=== PATIENT | female | born 1955 | race Caucasian/White ===

== ENCOUNTER 2016-11-27 05:19 | Inpatient (IN) | payer MEDICARE ==
[2016-11-14 11:13] LABS: BASOPHILS 0.6 %; BASOPHILS ABSOLUTE 0.06 10/3/uL (0.0-0.16); EOSINOPHILS ABSOLUTE 0.21 10/3/uL (0.0-0.53); HEMATOCRIT 42.1 % (36.0-48.0); HEMOGLOBIN 14.2 g/dL (12.0-16.0); IMMATURE GRANULOCYTES 0.3 %; IMMATURE GRANULOCYTES ABSOLUTE 0.03 10/3/uL (0.0-0.11); LYMPHOCYTES 34.3 %; LYMPHOCYTES ABSOLUTE 3.53 10/3/uL (0.67-4.30); MEAN CORPUS HGB CONC 33.7 g/dL (32.0-36.0); MEAN CORPUSCULAR HEMOGLOB 28.1 pg (26.0-34.0); MEAN CORPUSCULAR VOLUME 83.4 fL (80-100); MEAN PLATELET VOLUME 10.2 fL (9.2-13.0); MONOCYTES 5.7 %; MONOCYTES ABSOLUTE 0.59 10/3/uL (0.21-1.20); NEUTROPHILS 57.1 %; NEUTROPHILS ABSOLUTE 5.87 10/3/uL (2.02-8.40); PLATELET COUNT 291 10/3/uL (150-400); RBC DISTRIBUTION WIDTH 15.1 % (12.0-16.0); RED CELL COUNT 5.05 10/6/uL (4.0-5.6); WHITE BLOOD CELLS 10.3 10/3/uL (4.5-10.5)
[2016-11-14 11:16] LABS: MANUAL DIFF NO %
[2016-11-14 11:22] LABS: PARTIAL THROMBO TIME 25.8 SEC (22.5-37.2); PROTIME (NOT ORD) 13.5 SEC (12.0-14.5)
[2016-11-14 11:28] LABS: A/G RATIO 0.9 (0.7-1.9); ALBUMIN 3.6 G/DL (3.5-5.0); ALKALINE PHOSPHATASE 132 U/L (45-117); BUN (BLOOD UREA NITROGEN) 33 MG/DL (6-23); CALCIUM, SERUM 9.2 MG/DL (8.5-10.4); CHLORIDE, SERUM 98 MMOL/L (96-112); CO2 (CARBON DIOXIDE) 31 MMOL/L (24-34); CREATININE 1.46 MG/DL (0.55-1.02); GFR AFRICAN AMERICAN 44 ML/MIN (>=60); GFR NON AFRICAN AMERICAN 38 ML/MIN (>=60); GLOBULIN 4.1 G/DL (2.5-4.1); GLUCOSE, SERUM 246 MG/DL (60-99); POTASSIUM, SERUM 4.1 MMOL/L (3.5-5.3); SGOT(AST) 29 U/L (5-40); SGPT(ALT) 42 U/L (5-65); SODIUM, SERUM 134 MMOL/L (135-148); TOTAL BILIRUBIN 0.6 MG/DL (0-1.2); TOTAL PROTEIN 7.7 G/DL (6.0-8.5)
[2016-11-14 12:05] LABS: ASCORBIC ACID (UR NOT ORDER) NEG (NEG); BILIRUBIN, URINE NEGATIVE (NEG); KETONE, URINE NEGATIVE (NEG); LEUKOCYTE ESTERASE(NOT OR NEG (NEG); WBC (NOT ORDERED) (RFLEX) < 1 (0-5)
--- NOTE | ~2016-11-27 | OP ---
Record Of Operation [facility] [address] [place]. [address] NAME: TALIA CHANDRA : 53 STATUS : ADM IN PAT#: [id number] AGE: 61 ADM/REG DATE : 11/27/16 MR#: [id number] REPORT SERV DATE: 11/27/16 DICTATED BY: CHELLE POLLACK DATE: 11/27/16 REPORT STATUS : Draft TRANSCRIBED BY: MODL DATE: 11/27/16 DATE OF PROCEDURE: 11/27/2016 PREOPERATIVE DIAGNOSIS: Severe right knee degenerative joint disease. POSTOPERATIVE DIAGNOSIS: Severe right knee degenerative joint disease. OPERATION: Right posterior stabilized total knee replacement, cemented. SIDE: Right. SIZE: See chart. ANESTHESIA: See chart. ESTIMATED BLOOD LOSS: About 10 mL. TOURNIQUET TIME: Approximately 1 hour and 10 minutes. COMPLICATIONS: None. SPECIMENS: Articular surfaces. PROCEDURE IN DETAIL: The patient was appropriately identified and marked. The operative side agreed with the consent form and it was checked by all members of the surgical team. The patient was taken to the operating room and anesthesia was induced per the anesthesiologist. The patient was carefully transferred to the operating table without incident. The patient received appropriate prophylactic antibiotics and a Otero catheter was placed in the standard sterile technique. The patient was then carefully positioned, padded, prepped and draped in the normal sterile fashion. The operative leg had been appropriately identified and checked by all members of the operating team against the consent form and found to be the correct limb. The patient's lower extremity was then exsanguinated with an Cruz wrap and a tourniquet was inflated to 350 mm/Hg. Sharp dissection was carried out through a straight midline longitudinal incision and electrocautery through the fat. Sharp quad splitting approach was carried out between about the medial 10 percent of the tendon and the lateral 90 percent of the tendon and down around the medial aspect of the patella and then 1 cm medial to the tibial tubercle. The patella was carefully everted and the posterior fat pad was excised and gentle MCL elevation was carried out off the proximal medial tibia subperiosteally. IM guide was placed in the distal femur after using the appropriate drill. The distal femoral cutting guide was held with 2 pins and the distal cut made. Meniscal fragments and the ACL and the PCL were excised with electrocautery, carefully staying anterior to the posterior fat pad. The proximal tibial alignment guide was set appropriately and the proximal tibial cut made. Spacer block verified full extension with excellent mediolateral balance. Sizing guide was used to place 2 drill holes in the distal femur and the four-in-one cutting block was then placed, impacted and checked Record Of Operation [facility] [address] [place]. [address] NAME: TALIA CHANDRA : 53 STATUS : ADM IN PAT#: [id number] AGE: 61 ADM/REG DATE : 11/27/16 MR#: [id number] REPORT SERV DATE: 11/27/16 DICTATED BY: CHELLE POLLACK DATE: 11/27/16 REPORT STATUS : Draft TRANSCRIBED BY: CIERA DATE: 11/27/16 to be sure it would not notch with an scotty wing and it was held with 2 pins. The anterior cut, posterior cut, anterior chamfer and posterior chamfer cuts were made. The pins were removed and the block was removed. A posterior release was carried out with a curved 3/4 inch osteotome staying right on the bone posteriorly. The box-cut guide was then placed, impacted and held with 2 pins and a reciprocating saw was used to cut out the box. With the trial components in place, there was excellent medial/lateral balance. The patella was then measured with a caliper, cut first with an oscillating saw and then reamed with a patella reamer. With the trial patella in place, there was excellent patellar tracking. Rotation was marked on the tibia and the tibia prepared with a drill and stamp chisel. All surfaces were then copiously irrigated with pulsatile lavage, carefully dried and then vacuum-mixed cement was pressurized with a cement gun in a doughy phase. The tibial component was placed, impacted and excess cement was removed. The cement was then pressurized in the femur and placed on the posterior runners of the femoral component, which was placed, impacted and excess cement removed and the knee was brought out into extension on a trial spacer. The cement was then pressurized in the patella. Patellar component was then placed, clamped and excess cement was removed. Once all cement was hardened, the knee was taken through range of motion. Further extruded cement was removed with a small osteotome. Then based on the trial inserts, we decided on the actual insert, which was placed in the standard fashion and held with a locking mechanism. The knee was then copiously irrigated and then closed in a layered fashion over a medium Hemovac drain superolaterally with interrupted #1 in the deep fascia, 2-0 subcutaneous and brennen in the skin. The wounds were dressed sterilely and the tourniquet was deflated. The patient was then awakened and taken to the postanesthesia care unit without incident. All counts were correct at the end of the case. WTB/CIERA Herb Pollack M.D. / [id number] CC: Herb Pollack M.D.
--- NOTE | ~2016-11-27 | DS ---
Discharge Summary [place] [id number] [facility] [place]. [address] NAME: TALIA CHANDRA : 53 STATUS : DIS IN PAT#: [id number] AGE: 61 ADM/REG DATE : 11/27/16 MR#: [id number] REPORT SERV DATE: 12/08/16 DICTATED BY: CHELLE POLLACK DATE: 12/07/16 REPORT STATUS : Draft TRANSCRIBED BY: CIERA DATE: 12/07/16 Data Collection from hospitalization DISCHARGE DIAGNOSES: 1. Severe right knee degenerative joint disease. 2. Hypertension. 3. Hyperlipidemia. 4. Osteoarthritis. 5. Diabetes mellitus. 6. Smoker. 7. Obstructive sleep apnea. 8. Morbid obesity with BMI of 46. CONSULTATIONS: None. PROCEDURES PERFORMED: Right posterior stabilized total knee replacement, cemented, 11/27/2016. PATHOLOGY: Right knee arthroplasty; benign cartilaginous and meniscus tissue, soft tissue and synovium with mild synovial hyperplasia, benign bone and cartilage with degenerative joint disease with extensive cartilaginous eburnation and focal osteoclastic and osteoblastic activity. MEDICATIONS: Cymbalta 120 mg every morning; Toujeo SoloSTAR 15 units at bedtime; Theragran tablet without minerals one with breakfast; Lyrica 50 mg twice daily; Coumadin as directed; Prinzide one daily; Humalog 10 units subcutaneously before meals; Benadryl 50 mg at bedtime as needed; hydrocodone 7.5/325 one or two every 4-6 hours as needed. CONDITION AT DISCHARGE: Stable. DISPOSITION: She was discharged home to continue an 1800-calorie ADA diet with activity as discussed. She was to follow up with [facility] for physical therapy beginning on 11/30/2016. Follow up with Dr. Nick beginning on 12/03/2016 for walk-in labs while on Coumadin. Follow up with myself on 12/11/2016. HOSPITAL COURSE: This 61-year-old female was seen in the clinic with complaints of severe constant right knee pain times one plus years. She stated that she did not have a fall or injury. The patient uses the cane as an assistive device. Location of pain was medial, lateral, and behind the knee. Her symptoms included locking with extension or flexion, weakness, giving way, popping, cracking, grinding, catching, pain, stiffness, tightness and swelling. Her pain had been intensified with activity. She related difficulty with stairs and walking on uneven ground but denied any difficulty getting in and out of a car. Her pain was worse at night and with activity. Her pain was diminished by changing positions frequently. History of treatment included ice and heat without relief, Tylenol without relief and a brace. She denied any prior physical therapy, but did state prior injection without relief. She had a history of a bleeding ulcer and takes no NSAIDs. After a failure of conservative treatment, she is now admitted for surgery. Upon admission to the hospital, she had been taken to the operating room where she did undergo the above procedure. She Discharge Summary [facility] [address] [place]. [address] NAME: TALIA CHANDRA : 53 STATUS : DIS IN PAT#: [id number] AGE: 61 ADM/REG DATE : 11/27/16 MR#: [id number] REPORT SERV DATE: 12/08/16 DICTATED BY: CHELLE POLLACK DATE: 12/07/16 REPORT STATUS : Draft TRANSCRIBED BY: CIERA DATE: 12/07/16 tolerated this well and was transferred to the recovery room. On postop day #1, she did appear to be doing well. Her INR was at 1.1, hemoglobin 11.3, and hematocrit 34.7. She had been evaluated by Physical Therapy. She had been found to have acute kidney injury on chronic kidney disease, and her nephrotic medications were placed on hold. She was on sliding scale insulin level 2 as well as NovoLog 10 units and Levemir. On postop day #2, she did continue to do well. She was afebrile, and her vital signs were stable. Her INR was at 1.5. She was encouraged to mobilize with Physical Therapy. She had been continued on sliding scale insulin. On postop day #3, she did remain in stable condition and had no new complaints. As she continued to do well, she was then discharged with the above instructions. Information collected by: Laya Nova. I submit the above information as my discharge summary. DERIK/CIERA Herb Pollack M.D. / [id number] CC: Romelia nKott DO
[~2016-11-27 05:19] MED LIST: BEN25 PO; CYMBALTA60 PO; HUMALOGPEN SC; LYRICA50 PO; PRINZIDE PO; TOUJEO IJ
[2016-11-28 04:31] LABS: HEMATOCRIT 34.7 % (36.0-48.0); HEMOGLOBIN 11.3 g/dL (12.0-16.0)
[2016-11-28 04:36] LABS: INTERNATIONAL NORMAL RATI 1.1 UNITS (-); PROTIME (NOT ORD) 14.2 SEC (12.0-14.5)
[2016-11-28 04:47] LABS: BUN (BLOOD UREA NITROGEN) 30 MG/DL (6-23); CALCIUM, SERUM 8.6 MG/DL (8.5-10.4); CHLORIDE, SERUM 98 MMOL/L (96-112); CO2 (CARBON DIOXIDE) 31 MMOL/L (24-34); CREATININE 1.28 MG/DL (0.55-1.02); GFR AFRICAN AMERICAN 52 ML/MIN (>=60); GFR NON AFRICAN AMERICAN 45 ML/MIN (>=60); POTASSIUM, SERUM 4.6 MMOL/L (3.5-5.3); SODIUM, SERUM 135 MMOL/L (135-148)
[2016-11-28 04:49] LABS: GLUCOSE, SERUM 146 MG/DL (60-99)
[2016-11-29 05:53] LABS: BASOPHILS 0.3 %; BASOPHILS ABSOLUTE 0.04 10/3/uL (0.0-0.16); EOSINOPHILS 0.7 %; HEMATOCRIT 32.7 % (36.0-48.0); HEMOGLOBIN 10.9 g/dL (12.0-16.0); IMMATURE GRANULOCYTES 0.3 %; IMMATURE GRANULOCYTES ABSOLUTE 0.04 10/3/uL (0.0-0.11); LYMPHOCYTES 32.3 %; LYMPHOCYTES ABSOLUTE 4.36 10/3/uL (0.67-4.30); MEAN CORPUS HGB CONC 33.3 g/dL (32.0-36.0); MEAN CORPUSCULAR HEMOGLOB 27.9 pg (26.0-34.0); MEAN CORPUSCULAR VOLUME 83.8 fL (80-100); MEAN PLATELET VOLUME 9.8 fL (9.2-13.0); MONOCYTES 7.5 %; MONOCYTES ABSOLUTE 1.01 10/3/uL (0.21-1.20); NEUTROPHILS 58.9 %; NEUTROPHILS ABSOLUTE 7.95 10/3/uL (2.02-8.40); PLATELET COUNT 208 10/3/uL (150-400); RBC DISTRIBUTION WIDTH 14.9 % (12.0-16.0); WHITE BLOOD CELLS 13.5 10/3/uL (4.5-10.5)
[2016-11-29 05:54] LABS: MANUAL DIFF NO %
[2016-11-29 06:01] LABS: CALCIUM, SERUM 8.2 MG/DL (8.5-10.4); CHLORIDE, SERUM 97 MMOL/L (96-112); CO2 (CARBON DIOXIDE) 31 MMOL/L (24-34); CREATININE 0.98 MG/DL (0.55-1.02); GFR AFRICAN AMERICAN 72 ML/MIN (>=60); GFR NON AFRICAN AMERICAN 62 ML/MIN (>=60); GLUCOSE, SERUM 148 MG/DL (60-99); SODIUM, SERUM 132 MMOL/L (135-148)
[2016-11-29 06:03] LABS: BUN (BLOOD UREA NITROGEN) 24 MG/DL (6-23)
[2016-11-29 06:14] LABS: INTERNATIONAL NORMAL RATI 1.5 UNITS (-)
[2016-11-29] MEDS ORDERED: NORCO1 TA1 PO (19:10)
[2016-11-29] MEDS ORDERED: C5 PO (19:10)
[2016-11-30 04:48] LABS: HEMATOCRIT 31.4 % (36.0-48.0); HEMOGLOBIN 10.4 g/dL (12.0-16.0)
[2016-11-30 04:58] LABS: INTERNATIONAL NORMAL RATI 1.6 UNITS (-); PROTIME (NOT ORD) 18.7 SEC (12.0-14.5)
== END 2016-11-30 08:31 | disposition home or self-care (01) | DRG 470 ==
LOC: SDC/OF 05:19 → PACU 10:07 → 3JRC 11:01
PROVIDERS: Nurse Practitioner; Specialist
PROC: 0SRC0J9 Replacement of Right Knee Joint with Synthetic Substitute, Cemented, Open Approach (ICD-10-PCS; principal; 2016-11-27 07:00)
DX: M17.11 Unilateral primary osteoarthritis, right knee (principal); N17.9 Acute kidney failure, unspecified; E11.22 Type 2 diabetes mellitus with diabetic chronic kidney disease; I12.9 Hypertensive chronic kidney disease with stage 1 through stage 4 chronic kidney disease, or unspecified chronic kidney disease; N18.9 Chronic kidney disease, unspecified; F32.9 Major depressive disorder, single episode, unspecified
CPT/HCPCS: 71020; 80048; 80053; 81001; 82962; 85014; 85018; 85025; 85610; 85730; 87641; 88305; 88311; 93005; 97116-GP; 97150-GP; 97161-GP; 97165-GO; 97535-GO; A9270-GY; C1776; G8978-CK-GP; G8979-CI-GP; G8987-CK-GO; G8988-CJ-GO; J0330; J0690; J1170; J1885; J2250; J2274; J2405; J2795; J3010; J3370

== ENCOUNTER 2016-12-08 23:15 | Emergency (ER) | payer MEDICARE ==
[~2016-12-08 23:15] MED LIST changes: +C5 PO; +NORCO1 TA1 PO
[2016-12-09 02:10] LABS: BASOPHILS 0.3 %; BASOPHILS ABSOLUTE 0.04 10/3/uL (0.0-0.16); EOSINOPHILS 1.2 %; EOSINOPHILS ABSOLUTE 0.18 10/3/uL (0.0-0.53); ER CBC TAT 0 Hrs 00 Mins; HEMOGLOBIN 12.1 g/dL (12.0-16.0); IMMATURE GRANULOCYTES 0.5 %; IMMATURE GRANULOCYTES ABSOLUTE 0.07 10/3/uL (0.0-0.11); LYMPHOCYTES 33.4 %; LYMPHOCYTES ABSOLUTE 4.88 10/3/uL (0.67-4.30); MEAN CORPUS HGB CONC 33.1 g/dL (32.0-36.0); MEAN CORPUSCULAR HEMOGLOB 27.8 pg (26.0-34.0); MEAN CORPUSCULAR VOLUME 83.9 fL (80-100); MEAN PLATELET VOLUME 9.3 fL (9.2-13.0); MONOCYTES 6.7 %; MONOCYTES ABSOLUTE 0.98 10/3/uL (0.21-1.20); NEUTROPHILS 57.9 %; NEUTROPHILS ABSOLUTE 8.46 10/3/uL (2.02-8.40); RBC DISTRIBUTION WIDTH 15.2 % (12.0-16.0); RED CELL COUNT 4.36 10/6/uL (4.0-5.6); WHITE BLOOD CELLS 14.6 10/3/uL (4.5-10.5)
[2016-12-09 02:14] LABS: HEMATOCRIT 36.6 % (36.0-48.0); MANUAL DIFF NO %; PLATELET COUNT 346 10/3/uL (150-400)
[2016-12-09 02:25] LABS: A/G RATIO 0.8 (0.7-1.9); ALBUMIN 3.5 G/DL (3.5-5.0); CHLORIDE, SERUM 98 MMOL/L (96-112); CO2 (CARBON DIOXIDE) 30 MMOL/L (24-34); GFR AFRICAN AMERICAN 56 ML/MIN (>=60); GFR NON AFRICAN AMERICAN 48 ML/MIN (>=60); GLOBULIN 4.5 G/DL (2.5-4.1); GLUCOSE, SERUM 163 MG/DL (60-99); POTASSIUM, SERUM 4.1 MMOL/L (3.5-5.3); SGOT(AST) 19 U/L (5-40); SGPT(ALT) 31 U/L (5-65); SODIUM, SERUM 135 MMOL/L (135-148); TOTAL BILIRUBIN 0.4 MG/DL (0-1.2)
[2016-12-09 02:26] LABS: ALKALINE PHOSPHATASE 144 U/L (45-117); BUN (BLOOD UREA NITROGEN) 29 MG/DL (6-23); CALCIUM, SERUM 9.8 MG/DL (8.5-10.4)
[2016-12-09 02:26] LABS: INTERNATIONAL NORMAL RATI 1.5 UNITS (-)
[2016-12-09 02:27] LABS: PARTIAL THROMBO TIME 34.8 SEC (22.5-37.2)
[2016-12-09 02:28] LABS: LACTATE 1.1 MMOL/L (0.3-2.4)
[2016-12-09 02:32] LABS: PROTIME (NOT ORD) 18.4 SEC (12.0-14.5)
[2016-12-09 03:25] LABS: ASCORBIC ACID (UR NOT ORDER) NEG (NEG); BILIRUBIN, URINE NEGATIVE (NEG); ER URINALYSIS TAT 0 Hrs 00 Mins; KETONE, URINE NEGATIVE (NEG); LEUKOCYTE ESTERASE(NOT OR LARGE (NEG); NITRITE (URINE) NEG (NEG); WBC (NOT ORDERED) (RFLEX) 31 (0-5)
== END 2016-12-09 04:48 | disposition home or self-care (01) ==
LOC: ER 23:15
PROVIDERS: Nurse Practitioner
DX: G89.18 Other acute postprocedural pain (principal); M25.561 Pain in right knee; I10 Essential (primary) hypertension; E11.9 Type 2 diabetes mellitus without complications; Z88.2 Allergy status to sulfonamides; Z88.5 Allergy status to narcotic agent; Z79.4 Long term (current) use of insulin; Z79.01 Long term (current) use of anticoagulants; Z79.899 Other long term (current) drug therapy
CPT/HCPCS: 73560-RT; 80053; 81001; 83605; 85025; 85610; 85730; 87040; 87077; 87086; 87186; 99284; J0690